=== PATIENT | female | born 1980 | race Caucasian/White ===

== ENCOUNTER 2016-07-25 09:01 | Emergency (ER) | payer MEDICAID ==
[2016-07-25 09:52] VITALS: TEMP 98.1; O2SAT 100; BMI 24.0
--- NOTE | 2016-07-25 10:22 | ED PDOC ---
Arrival/HPI - General Chief Complaint: Back Pain Time Seen by Provider: 07/25/16 10:17 Historian: Patient - History of Present Illness Narrative History of Present Illness (Text): 07/25/16 10:18 This 35 yo female presents to this ED c/o right sided neck pain x 3 weeks. Patient stated she has been taking Ibuprofen with mild relief of symptoms. Patient denies trauma, heavy lifting. Denies paresthesias, weakness, or abnormal gait. Time/Duration: < month, Other (3 weeks) Symptom Onset: Gradual Symptom Course: Unchanged Context: Home Past Medical History - Provider Review Nursing Documentation Reviewed: Yes - Past Medical History Past Medical History: No Previous - Gastrointestinal Hx Bowel Surgery: No Hx Constipation: Yes - Psychiatric Hx Depression: No Hx Emotional Abuse: No Hx Physical Abuse: No Hx Substance Use: No - Past Surgical History Past Surgical History: No Previous - Suicidal Assessment Feels Threatened In Home Enviroment: No Family/Social History - Physician Review Nursing Documentation Reviewed: Yes Family/Social History: No Known Family HX Smoking Status: Never Smoked Hx Alcohol Use: No Hx Substance Use: No Hx Substance Use Treatment: No Allergies/Home Meds Allergies/Adverse Reactions: Allergies No Known Allergies Allergy (Verified 07/25/16 09:52) Review of Systems - Review of Systems Constitutional: Normal. absent: Fatigue, Weight Change, Fevers, Night Sweats Eyes: Normal ENT: Normal Respiratory: Normal. absent: SOB, Cough, Sputum, Wheezing Cardiovascular: Normal. absent: Chest Pain, Palpitations Gastrointestinal: Normal. absent: Abdominal Pain, Nausea, Vomiting Genitourinary Female: Normal. absent: Dysuria, Frequency, Hematuria Musculoskeletal: Neck Pain. absent: Arthralgias, Back Pain, Joint Swelling, Myalgias Skin: Normal Neurological: Normal. absent: Headache, Focal Weakness, Speech Changes, Facial Droop Endocrine: Normal Hemo/Lymphatic: Normal Psychiatric: Normal Physical Exam Vital Signs Temp Pulse Resp BP Pulse Ox 07/25/16 11:09 78 16 113/80 100 07/25/16 09:48 98.1 F 80 18 112/76 100 Temperature: Afebrile Blood Pressure: Normal Pulse: Regular Respiratory Rate: Normal Appearance: Positive for: Well-Appearing, Non-Toxic, Comfortable Pain Distress: None Mental Status: Positive for: Alert and Oriented X 3 - Systems Exam Head: Present: Atraumatic, Normocephalic Pupils: Present: PERRL Extroacular Muscles: Present: EOMI Conjunctiva: Present: Normal Mouth: Present: Moist Mucous Membranes Neck: Present: Normal Range of Motion Back: Present: Normal Inspection. No: CVA Tenderness Upper Extremity: Present: Normal Inspection, Normal ROM, NORMAL PULSES, Neurovascularly Intact, Capillary Refill < 2s. No: Cyanosis, Edema Lower Extremity: Present: Normal Inspection, NORMAL PULSES, Normal ROM, Neurovascularly Intact, Capillary Refill < 2 s. No: Edema Neurological: Present: GCS=15, CN II-XII Intact, Speech Normal, Motor Func Grossly Intact, Normal Sensory Function, Normal Cerebellar Funct, Gait Normal, Memory Normal Skin: Present: Warm, Dry, Normal Color. No: Rashes Psychiatric: Present: Alert, Oriented x 3, Normal Insight, Normal Concentration Medical Decision Making ED Course and Treatment: 07/25/16 12:30 Patient cam c/o right sided neck pain. No trauma, or neuro focal deficit. Physical exam was unremarkable. Patient was treated with Toradol IM, and Valium PO. Patient felt better. C-spine x-rays was negative. Patient was recommended to f/u pmd, and Medication was ordered. Re-evaluation Time: 12:32 Reassessment Condition: Re-examined, Improved - RAD Interpretation Narrative RAD Interpretations (Text): 07/25/16 12:30 Patient Name / ID : ARMANDO LEWIS / [id number] Exam Date : 07/25/2016 10:58:02 ( Approved ) Study Comment : Sex / Age : F / 35Y Creator : Cliff Croft MD Dictator : Cliff Croft MD Pressfitter : Typing Checker : Cliff Croft MD Approver2 : Report Date : 07/25/2016 12:24:08 My Comment : PROCEDURE: Cervical Spine Radiographs. HISTORY: Pain. COMPARISON: None. FINDINGS: BONES: Alignment maintained. No fracture. Dens Intact. DISC SPACES: Normal. SOFT TISSUES: Normal. No prevertebral soft tissue swelling. OTHER FINDINGS: None. IMPRESSION: Normal cervical spine radiographs Radiology Orders: 07/25/16 10:21 CERVICAL SPINE >18YR W/OBLIQUE [RAD] Stat - Medication Orders Current Medication Orders: Discontinued Medications Diazepam (Valium) 2 mg PO ONCE ONE PRN Reason: Protocol Stop: 07/25/16 10:22 Last Admin: 07/25/16 11:03 Dose: 2 mg Ketorolac Tromethamine (Toradol) 15 mg IM STAT STA Stop: 07/25/16 10:22 Last Admin: 07/25/16 11:02 Dose: 15 mg Disposition/Present on Arrival - Present on Arrival Any Indicators Present on Arrival: No History of DVT/PE: No History of Uncontrolled Diabetes: No Urinary Catheter: No History of Decub. Ulcer: No History Surgical Site Infection Following: None - Disposition Have Diagnosis and Disposition been Completed?: Yes Diagnosis: Neck pain Disposition: HOME/ ROUTINE Disposition Time: 12:32 Patient Plan: Discharge Patient Problems: Current Active Problems Problem Status Onset Neck pain Acute Condition: GOOD Discharge Instructions (ExitCare): Cervical Sprain (ED) Additional Instructions: Call private doctor for follow up visit in 1-2 days. Take medication as instructed. Return to emergency if symptoms worsen. Prescriptions: Acetaminophen with Codeine [Tylenol with Codeine #3 Tablet] 1 each PO Q6H PRN # 10 tablet PRN Reason: Pain, Severe (8-10) diaZEpam [Valium] 5 mg PO DAILY #7 tab Naproxen [Naprosyn Tab] 375 mg PO BID #14 tab Referrals: PCP,NO [Primary Care Provider] - Follow up with primary [facility] [Outside] - Follow up with primary [facility], [place] [Outside] - Follow up with primary Forms: WORK NOTE
--- NOTE | 2016-07-25 12:25 | RAD ---
PROCEDURE: Cervical Spine Radiographs. HISTORY: Pain. COMPARISON: None. FINDINGS: BONES: Alignment maintained. No fracture. Dens Intact. DISC SPACES: Normal. SOFT TISSUES: Normal. No prevertebral soft tissue swelling. OTHER FINDINGS: None. IMPRESSION: Normal cervical spine radiographs
[2016-07-25 12:45] VITALS: BP 110/77; PULSE 84; RESP 18
== END 2016-07-25 12:45 | disposition home or self-care (01) ==
LOC: ED 09:01
DX: M54.2 Cervicalgia (principal)
CPT/HCPCS: 72050; 81025; 96372; 99283; J1885